=== PATIENT | male | born 1990 | race Hispanic/Latino ===

== ENCOUNTER 2017-03-11 12:03 | Emergency (ER) | payer OTHER ==
[2017-03-11 12:18] VITALS: BP 130/88; TEMP 98.6; O2SAT 98
--- NOTE | 2017-03-11 12:18 | ED.PDOC ---
History of Present Illness - General Chief Complaint: Upper Extremity Injury Stated Complaint: left wrist pain Time Seen by Provider: 03/11/17 12:10 Source: patient, RN notes reviewed, Vital Signs reviewed Exam Limitations: no limitations - History of Present Illness Initial Comments: Patient was working and a wrench he was using as a lever flew up and hit his L wrist. Sudden onset of pain and swelling. No numbness or tingling. No weakness. Pain is worse with movement. Occurred: just prior to arrival Pain - Upper Extremity: moderate: Wrist, left Method of Injury: direct blow Improving Factors: immobilization Worsening Factors: movement Allergies/Adverse Reactions: Allergies NO KNOWN ALLERGY Allergy (Verified 03/11/17 12:19) Home Medications: Ambulatory Orders NK [NK] 03/11/17 Review of Systems - Review of Systems Constitutional: States: no symptoms reported Respiratory: States: no symptoms reported Cardiology: States: no symptoms reported Musculoskeletal: States: no symptoms reported, joint pain, joint swelling Skin: States: no symptoms reported Neurological: States: no symptoms reported. Denies: numbness, paresthesia, tingling, tremors, weakness Family Medical History - Family History Mother Family History: Unknown Living Status: Unknown Physical Exam - Physical Exam General Appearance: Alert, Comfortable, No apparent distress, Well Developed, Well Groomed, Well Hydrated, Well Nourished Elbow/Forearm Exam: normal inspection, non-tender, no evidence of injury, normal ROM Wrist Exam: abrasions, bone tenderness, limited ROM - hurts to supinate, soft tissue tenderness - L lateral wrist, swelling - L lateral wrist Hand Exam: normal inspection, non-tender, no evidence of injury, normal ROM Neuro/Tendon: normal sensation, normal motor functions, normal tendon functions Mental Status: alert, oriented x 3 Skin Exam: normal color, warm/dry Progress - EKG/XRAY/CT XRAY: L wrist: no fracture Departure - Departure Clinical Impression: Contusion of wrist, left Qualifiers: Encounter type: initial encounter Qualified Code(s): S60.212A - Contusion of left wrist, initial encounter Time of Disposition: 12:52 Disposition: Discharge to Home or Self Care Condition: Good Departure Forms: ED Discharge - Pt. Copy, Patient Portal Self Enrollment Instructions: Contusion Diet: resume usual diet Activity: no pushing/pulling with affected limb Home Medications: Ambulatory Orders NK [NK] 03/11/17
--- NOTE | 2017-03-11 12:41 | RAD ---
EXAM DESCRIPTION: Wrist,Left 3 Views CLINICAL HISTORY: 26 years, Male, Pain/swelling after direct blow with wrench COMPARISON: None TECHNIQUE: AP/ lateral/ oblique views of the left wrist. FINDINGS: Left wrist study shows no fracture or dislocation. Carpal relationships are well-maintained. No significant arthritic changes are observed. IMPRESSION: 1. Normal study Electronically signed by: Chava Wylie MD 03/11/2017 12:40 PM CDT
== END 2017-03-11 12:59 | disposition home or self-care (01) ==
LOC: ER 12:03
DX: S60.212A Contusion of left wrist, initial encounter (principal); W22.8XXA Striking against or struck by other objects, initial encounter; Y99.0 Civilian activity done for income or pay